=== PATIENT | female | born 1995 | race African-American/Black ===

== ENCOUNTER 2023-08-13 11:02 | Emergency (ER) | payer MEDICAID ==
[~2023-08-13] VITALS: Ht 172.7 cm; Wt 115.9 kg
[2023-08-13 12:24] VITALS: BP 130/76; PULSE 65; RESP 18; TEMP 97.8; O2SAT 100
[2023-08-13] MEDS ORDERED: cefTRIAXone SOD 1,000 MG VL IM ONE (12:30)
[2023-08-13] MEDS ORDERED: LIDO2SOL26 MT (12:47)
[2023-08-13] MEDS ORDERED: AZIT500T66 PO (12:47)
== END 2023-08-13 13:23 | disposition home or self-care (01) ==
LOC: ER 11:02
DX: J03.90 Acute tonsillitis, unspecified (principal)
CPT/HCPCS: 96372; 99283; J0696